=== PATIENT | female | born 1995 | race Caucasian/White ===

== ENCOUNTER 2025-05-03 08:02 | Emergency (ER) | payer SELFPAY ==
[~2025-05-03] VITALS: Ht 170.2 cm; Wt 110.0 kg
[2025-05-03 08:58] LABS: URINE HCG NEGATIVE (NEG)
[2025-05-03 09:00] LABS: LEUKOCYTE ESTERASE ,URINE NEGATIVE (Neg); NITRITES, URINE NEGATIVE (Neg); OCCULT BLOOD,URINE NEGATIVE (Neg)
[2025-05-03 09:04] LABS: UA COLLECTION TYPE CLN CATCH MIDSTREAM
--- NOTE | 2025-05-03 09:07 | Physician Documentation ---
History of Present Illness Chief Complaint: Abdominal Pain Stated Complaint: ABD PAIN Time Seen by MD: 09:02 HPI This is a previously healthy 29-year-old female who presents for evaluation of sudden unprovoked right lower quadrant abdominal pain that began at 2:00 a.m.. Woke up from sleep. No palliating or aggravating factors. Never experienced anything like that in the past. Describes pain as both sharp and pressure. Ibuprofen did not help. Denies any nausea, vomiting, fever. Denies any other symptoms. LMP: Two weeks ago No concern for tobacco, alcohol or illicit substances use Medication Reconciliation Allergies: Coded Allergies: No Known Allergies (Unverified , 05/03/25) Review of Systems ROS 10 point review of systems was performed and unless noted above in HPI is negative for acute process/complaint. Physical Exam Vital Signs: Temperature: 98.5, Source: Oral, Heart Rate: 107, Respiratory Rate: 16, BP: 149/98, Pulse Oximetry: 98, Weight: 110.000 Oxygen Flow Rate: 0 Physical Exam GENERAL: Awake, alert, oriented, GCS 15, no apparent distress, non-toxic appearing, answers questions, follows commands appropriately. Examined in bed 4. HEENT: Atraumatic, normocephalic, pupils equal, extraocular muscles intact, sclerae anicteric, mucus membranes moist, oropharynx is clear, no stridor. NECK: supple, full active range of motion, trachea midline, no thyromegaly, no lymphadenopathy, no JVD. CARDIOVASCULAR: Tachycardic and regular rate/rhythm, no murmurs/gallops/rubs, Pulses are 2+ in all extremities and symmetric. Capillary refill less than 2 seconds. PULMONARY: Nonlabored, good air movement ,no respiratory distress, speaking in f ull sentences, clear to auscultation bilaterally, no wheezing, no ronchi, no rales, no accessory muscle use. GASTROINTESTINAL: Soft, right lower quadrant abdominal pain and tenderness reproducing chief complaint, non-distended, normal active bowel sounds, no organomegaly, no pulsatile masses, no CVA tenderness. NEUROLOGIC: Lucid with normal mental status. Normal facial symmetry. Moves all extremities symmetrically and with purpose. No truncal ataxia. Speech is fluid without evidence of dysarthria or aphasia, no focal deficits appreciated. MUSCULOSKELETAL: There is full range of motion of all extremities. There is no joint pain or joint swelling or joint erythema. There is no muscle pain or tenderness or swelling. EXTREMITIES: warm, well-perfused, no cyanosis, no clubbing, no edema, no acute deformities. Skin: warm, dry, no rashes or lesions, no jaundice, no petechiae orpurpura. No ecchymosis. PSYCHIATRIC: Normal affect, normal insight, normal concentration. Focused exam: No guarding or rebound Progress Results/Orders Results/Orders Orders - KANDI HUGHES DO Urinalysis, Cult If Indicated (05/03/25 08:18) Cbc/Diff (05/03/25 08:18) BMP (05/03/25 08:18) Lipase (05/03/25 08:18) CMP (05/03/25 08:18) Completed Orders - KANDI HUGHES DO Hcg, Ur Ql (05/03/25 08:18) Vital Signs 05/03/25 08:12 Temp 98.5 Pulse 107 Resp 16 B/P (MAP) 149/98 Pulse Ox 98 O2 Flow Rate 0 Laboratory Tests Test 05/03/25 08:38 Urine HCG, Qualitative Negative Urine Comment Medical Decision Making Findings Facility Status: ED Holds, RME process The plan was discussed with the patient, who demonstrates clear understanding of the plan and is in agreement with the plan unless otherwise noted in the chart. All questions have been answered, all concerns were addressed unless otherwise documented. I was available throughout their ED stay for frequent reassessment and questions. Differential Diagnoses (considered and possible or likely): [Differential diagnosis considered includes acute appendicitis, acute cholecystitis, pancreatitis, gastritis, PUD, diverticulitis, mesenteric ischemia, abdominal aortic aneurysm, bowel obstruction, enteritis, colitis, fecal impaction, volvulus, IBS, inflammatory bowel disease, specific food intolerance, peritonitis, perforated viscous, malignancy, UTI, abscess, and abdominal pain NOS. Pelvic source of pain was also considered including endometritis, dysmenorrhea, ovarian cyst, ovarian torsion, PID, TOA, cervicitis, vaginitis, or uterine fibroid. History, physical exam, and workup exclude many of the more serious causes listed above. ] ??Differential Diagnoses (considered and unlikely, not requiring evaluation currently): [See above] MDM Data Please see HPI for the following: Independent Historians and external Records Review. Historian: [Patient] Independent Historians: ?[Record review] Medication Management: [Reviewed medication list] Social History and determinants: [Reviewed] Please see the body of the note for the following: Any independent interpretations of ECG, imaging studies. All vitals signs/haemodynamics, ordered tests were independently reviewed and interpreted by myself. Nursing triage complaint and vitals reviewed, additional nursing notes were reviewed as available and I agree unless otherwise noted or documented in contradiction in the chart Vital Signs: Independently reviewed Labs: Independently interpreted Imaging: Independently interpreted Old Medical Records: Independently reviewed, see HPI for relevant summary and information Pulse Oximetry: [97%] interpreted as [normal on room air] by me [[employer] [place]: Tachycardic Rate, Regular rhythm, no ectopy, sinus tachycardia. reviewed and interpreted by me] Additionally notably showing: [Dynamics reviewed. The patient initially tachycardic, improved with the pain management, no evidence of hypotension or respiratory distress. CBC is normal. No leukocytosis. Chemistry is also unremarkable. Lipase is normal. She is not . UA shows no UTI. Ultrasound that is unremarkable, chance bilateral ovarian flow. CT shows right kidney hydronephrosis with a 2 mm stone.] Tests considered but not ordered include: [Not applicable, exhaustive workup was obtained] Social Determinants of Health Impact: Patient was evaluated in [facility], or [facility] [place] access to healthcare due to below par ratio of patient to medical providers. [] Comorbid Conditions Impacting Present Evaluation and Care/Treatment: [None] Management Discussions with other Healthcare Providers: [None] Treatment and Disposition Medication Management (Given or considered): [Pain management]. See EMR for details Consideration for Hospitalization/Escalation/Deescalation of Care: Admission for observation has been considered, [however the patient is able to tolerate p.o., their symptoms are controlled, they are able to rely on oral medications, and their chief complaint/diagnosis can be managed on outpatient basis.] ?ED Course:?[No clinical deterioration] ?Shared decision making: Patient is hemodynamically stable for discharge home with follow with their primary care provider. [ ] Specific and cautious return precautions provided and discussed with full understanding. Any incidental findings were also discussed and follow up recommendations given. [] All questions answered. Patient/family were able to verbalize back return precautions. Patient/family agree to plan. Copies of imaging and laboratory studies were provided. And some Code status:?FULL Please see the full Electronic Medical Record for full details of nursing documentation, medications list, other records of complete past medical history and conditions, vital signs, laboratory studies, and any radiologic study interpretations by radiologists. Portions of this note were completed using [employer] dictation software and as a result there may exist minor errors in spelling. I have reviewed elements of past family and social history and agree as included in note. Departure Disposition: HOME / SELF CARE / HOMELESS Impression: Primary Impression: Kidney stone Condition: Stable Discharge Instructions: Renal Colic Referrals: NO PRIMARY CARE PROVIDER (PCP) Prescriptions Hydrocodone Bit/Acetaminophen 5/325 MG (Blanchard 5/325 MG) 5 Mg/325 Mg Tablet 1 TAB PO Q6H PRN for pain, #14 TAB Prov: KANDI HUGHES DO 05/03/25 Naproxen (Naproxen) 500 Mg Tablet 1 TAB PO Q12H, #20 TAB Prov: KANDI HUGHES DO 05/03/25 Education Educated: Patient, Family Educated regarding: diagnosis, treatment, prognosis, need for follow up Signature Scribe Signature: No scribe Attestation: Date: May 03, 2025 Time: 09:07 This note accurately reflects clinical decisions, work performed by myself, DO SAUL Groves NICHOLAS M DO May 03, 2025 09:07
[2025-05-03 09:08] LABS: HYALINE CASTS 0-3 /LPF (NEGATIVE); MUCUS STRANDS MANY /LPF (Neg); SQUAMOUS EPITHELIAL CELL,UR MANY /LPF (FEW)
[2025-05-03 09:37] LABS: MEAN PLATELET VOLUME 8.7 FL (7.4-10.4); RED CELL DISTRIBUTION WIDTH 13.1 % (11.5-14.5)
[2025-05-03] MEDS: ondansetron/PF 4mg/2ml inj IV ONE (09:38)
[2025-05-03] MEDS: morphine 4 MG/ML inj SYRINge IV ONE ×2 (09:38→10:47)
[2025-05-03 09:43] LABS: HCG SERUM QL NEGATIVE
[2025-05-03 09:46] LABS: CREATININE 0.91 MG/DL (0.40-0.90); TOTAL CARBON DIOXIDE 28.0 MMOL/L (24-32); eCRCL 90 ML/MIN; eGFR 74 ML/MIN
--- NOTE | 2025-05-03 09:55 | RADIOLOGY REPORT ---
INDICATION: R adnexal pain, torsion TECHNIQUE: Multiple real-time grayscale transabdominal and transvaginal sonographic images along with color and duplex Doppler of the uterus and ovaries were obtained. COMPARISON: None FINDINGS: The uterus measures 7.2 x 3.2 x 4.3 cm. The endometrial stripe measures 0.6 cm. Right ovary measures 2.4 x 2.5 x 1.8 cm with normal Doppler color flow Left ovary measures 3.1 x 2.6 x 1.9 cm with normal Doppler color flow Bilateral ovarian follicles are present. IMPRESSION: Grossly unremarkable pelvic ultrasound.
[2025-05-03] MEDS ORDERED: iohexol 300mg/ml 100ml inj. ONE (10:11)
--- NOTE | 2025-05-03 10:56 | RADIOLOGY REPORT ---
Indication: RLQ pain Technique: CT axial images of the abdomen and pelvis are obtained with intravenous contrast. Coronal and sagittal reformats were obtained. Radiation Dose Information: CTDI volume is 33 mGy. Dose-length product is 1772 mGy*cm Comparison: None FINDINGS: Lung bases demonstrate no pleural effusion. Adrenal glands unremarkable splenic hypodense lesion measuring 11 mm. Pancreas unremarkable. No CT evidence for cholelithiasis. No enhancing hepatic lesion. The right kidney demonstrates moderate right hydroureteronephrosis secondary to a 2 mm calculus at the right ureterovesicular junction. Left kidney demonstrates no hydronephrosis. Stomach is partially distended. Small bowel loops normal in caliber. Moderate volume stool in the colon. Normal appendix. Abdominal aorta normal in caliber. Bladder is contracted. Left ovarian / adnexal region and gonadal vein with calcifications measuring 2.3 cm. No inguinal lymphadenopathy. No aggressive osseous process. IMPRESSION: Moderate right hydroureteronephrosis secondary to a 2 mm calculus at the right ureterovesicular junction. Splenic hypodense lesion measuring 11 mm which can be further characterized with multiphasic MRI abdomen with and without contrast in the nonemergent setting. Left ovarian/ gonadal vein calcifications /vascular phleboliths. Other findings as described
[2025-05-03] MEDS ORDERED: HYDR-3965 PO (11:17)
[2025-05-03] MEDS ORDERED: NAPR-56 PO (11:17)
[2025-05-03 11:23] VITALS: BP 129/92; PULSE 78; RESP 16; TEMP 98.6; O2SAT 98
== END 2025-05-03 11:30 | disposition home or self-care (01) ==
LOC: ER 08:04
DX: N20.0 Calculus of kidney (principal)
CPT/HCPCS: 36415; 74177; 76856; 80053; 81001; 81025; 83690; 84703; 85025; 93976; 96374; 96375; 96376; 99285; J2270; J2405; Q9967